=== PATIENT | male | born 1955 | race African-American/Black ===

== ENCOUNTER 2020-05-11 15:31 | Inpatient (IN) ==
[2020-05-11 16:17] LABS: Basophils % 0.5 % (0.0-0.8); Eosinophils % 0.7 % (0.00-10.9); Hematocrit 31.9 VOL% (42.0-52.0); Hemoglobin 9.8 GM/DL (14.0-18.0); Immature Granulocytes % 0.5 %; Immature Granulocytes Absolute 0.02 #; Lymphocytes # 0.5 10*3/uL (1.4-4.0); Lymphocytes % 12.4 % (21.2-54.2); Mean Corpuscular HGB Conc 30.7 GM/DL (32-36); Mean Corpuscular Volume 89.9 FL (87-102); Mean Platelet Volume 11.3 FL (9.6-12.0); Monocytes % 4.7 % (1.7-12.7); Neutrophils % 81.2 % (38.7-73.9); Platelet Count 149 T/CUMM (130-400); Red Blood Count 3.55 MC/CUMM (3.8-5.5); Red Cell Distribution Width 16.6 % (9.3-17.3); White Blood Count 4.3 T/CUMM (4-12)
[2020-05-11 16:44] LABS: Alanine Aminotransferase 28 U/L (16-61); Albumin 3.6 G/DL (3.4-5.0); Alkaline Phosphatase 162 U/L (45-117); Aspartate Amino Transferase 28 U/L (0-37); Bilirubin,Total < 0.39 MG/DL (0.2-1.0); Blood Urea Nitrogen 32 MG/DL (7-18); Calcium 8.9 MG/DL (8.5-10.1); Estimated Glom Filtration Rate 29 ML/MIN; Glucose 118 MG/DL (74-106); Osmolality,Calculated 295.7 MOS/KG (273-304); Total Protein 7.3 G/DL (6.4-8.3)
[2020-05-11 17:51] LABS: ABG Base Excess 0.4 MMOL/L (-2.5-2.5); ABG HCO3 24.7 MMOL/L (20-26); ABG Oxygen Saturation 93.1 % (95-100); ABG PCO2 55.1 MM HG (35-48); ABG PH 7.306 (7.35-7.45); ABG PO2 75.3 MM HG (80-95); ABG TCO2 25.5 MMOL/L (23-27)
[2020-05-11] MEDS ORDERED: GLUCAGON 1 MG VIAL IM PRN (18:01)
[2020-05-11] MEDS ORDERED: ACETAMINOPHEN 325 MG TABLET PO PRN (18:01)
[2020-05-11] MEDS ORDERED: DEXTROSE 50% 25 GM/50 ML VIAL IV PRN (18:01)
[2020-05-11] MEDS ORDERED: ONDANSETRON 4 MG/2 ML VIAL IV PRN (18:01)
[2020-05-11] MEDS ORDERED: LACTULOSE 20 GM/30 ML UDCUP PO PRN (18:01)
[2020-05-11] MEDS ORDERED: NITROGLYCERIN SL 0.4 MG TABLET SL PRN (18:05)
[2020-05-11] MEDS ORDERED: FUROSEMIDE 40 MG/4 ML VIAL IV ONE (18:06)
[2020-05-11] MEDS ORDERED: cefTRIAXone 1,000 MG in SODIUM CHLORIDE 0.9% 100 ML IV STA (18:07)
[2020-05-11] MEDS ORDERED: AZITHROMYCIN INJ 500 MG in SODIUM CHLORIDE 0.9% 250 ML IV STA (18:07)
[2020-05-11] MEDS ORDERED: methylPREDNISolone SOD SUC 40 MG/1 ML VIAL IV STA (18:07)
[2020-05-11] MEDS: ALBUTEROL/IPRATROPIUM 3 ML NEB RESP TX SCH ×2 (20:00→22:35)
[2020-05-11] MEDS: hydrALAZINE 25 MG TABLET PO SCH (21:23)
[2020-05-11] MEDS: LOSARTAN 50 MG TABLET PO SCH (21:23)
[2020-05-11] MEDS: carvediloL 25 MG TABLET PO SCH (21:23)
[2020-05-11] MEDS: APIXABAN 5 MG TABLET PO SCH (21:23)
[2020-05-11] MEDS: AMIODARONE 200 MG TABLET PO SCH (21:24)
[2020-05-11] MEDS: ENOXAPARIN 30 MG/0.3 ML SYRINGE SUBCUT SCH (21:24)
[2020-05-11] MEDS: cloNIDine 0.1 MG TABLET PO SCH (21:53)
[2020-05-11] MEDS: INSULIN LISPRO 100 UNIT/ML SUBCUT SCH (21:54)
[2020-05-12] MEDS: ALBUTEROL/IPRATROPIUM 3 ML NEB RESP TX SCH ×6 (03:30→23:25)
[2020-05-12 04:41] LABS: Basophils % 0.2 % (0.0-0.8); Immature Granulocytes % 0.4 %; Immature Granulocytes Absolute 0.02 #; Lymphocytes # 0.5 10*3/uL (1.4-4.0); Lymphocytes % 11.9 % (21.2-54.2); Mean Corpuscular Volume 88.4 FL (87-102); Monocytes % 2.9 % (1.7-12.7); Neutrophils % 84.6 % (38.7-73.9); Platelet Count 162 T/CUMM (130-400); Red Blood Count 3.28 MC/CUMM (3.8-5.5); Red Cell Distribution Width 16.7 % (9.3-17.3); White Blood Count 4.5 T/CUMM (4-12)
[2020-05-12 05:06] LABS: Albumin 3.2 G/DL (3.4-5.0); Bilirubin,Total 0.6 MG/DL (0.2-1.0); Calcium 8.2 MG/DL (8.5-10.1); Osmolality,Calculated 286.7 MOS/KG (273-304); Total Protein 7.5 G/DL (6.4-8.3)
[2020-05-12] MEDS: cloNIDine 0.1 MG TABLET PO SCH ×3 (06:12→22:09)
[2020-05-12] MEDS: DILTIAZEM CD 180 MG CAPSULE PO SCH (09:30)
[2020-05-12] MEDS: INSULIN LISPRO 100 UNIT/ML SUBCUT SCH ×4 (09:30→22:10)
[2020-05-12] MEDS: hydrALAZINE 25 MG TABLET PO SCH ×2 (09:31→22:09)
[2020-05-12] MEDS: PANTOPRAZOLE 40 MG TABLET PO SCH (09:31)
[2020-05-12] MEDS: LOSARTAN 50 MG TABLET PO SCH ×2 (09:31→22:09)
[2020-05-12] MEDS: AMIODARONE 200 MG TABLET PO SCH ×2 (09:31→22:09)
[2020-05-12] MEDS: APIXABAN 5 MG TABLET PO SCH ×2 (09:31→22:09)
[2020-05-12] MEDS: carvediloL 25 MG TABLET PO SCH ×2 (09:31→22:09)
[2020-05-12] MEDS: ROSUVASTATIN 10 MG TABLET PO SCH (09:32)
[2020-05-12] MEDS: FUROSEMIDE 40 MG/4 ML VIAL IV SCH (09:32)
[2020-05-12] MEDS: methylPREDNISolone SOD SUC 40 MG/1 ML VIAL IV SCH ×2 (09:32→22:08)
[2020-05-12] MEDS: AZITHROMYCIN INJ 500 MG in SODIUM CHLORIDE 0.9% 250 ML IV SCH (09:33)
[2020-05-12] MEDS: cefTRIAXone 1,000 MG in SYRINGE 1 EACH IV SCH (09:33)
[2020-05-12] MEDS: allopurinoL 100 MG TABLET PO SCH (09:33)
[2020-05-12] MEDS: ENOXAPARIN 30 MG/0.3 ML SYRINGE SUBCUT SCH (22:09)
[2020-05-13] MEDS: ALBUTEROL/IPRATROPIUM 3 ML NEB RESP TX SCH ×5 (03:10→20:14)
[2020-05-13] MEDS: cloNIDine 0.1 MG TABLET PO SCH ×3 (05:50→21:44)
[2020-05-13 08:58] LABS: Hematocrit 30.9 VOL% (42.0-52.0); Hemoglobin 9.5 GM/DL (14.0-18.0); Immature Granulocytes % 0.6 %; Immature Granulocytes Absolute 0.06 #; Lymphocytes # 0.7 10*3/uL (1.4-4.0); Lymphocytes % 6.5 % (21.2-54.2); Mean Corpuscular HGB Conc 30.7 GM/DL (32-36); Mean Corpuscular Volume 89.3 FL (87-102); Mean Platelet Volume 11.9 FL (9.6-12.0); Monocytes % 2.5 % (1.7-12.7); Neutrophils % 90.4 % (38.7-73.9); Platelet Count 208 T/CUMM (130-400); Red Blood Count 3.46 MC/CUMM (3.8-5.5); Red Cell Distribution Width 16.5 % (9.3-17.3); White Blood Count 10.3 T/CUMM (4-12)
[2020-05-13 09:12] LABS: Calcium 8.2 MG/DL (8.5-10.1)
[2020-05-13] MEDS: APIXABAN 5 MG TABLET PO SCH ×2 (09:30→21:37)
[2020-05-13] MEDS: carvediloL 25 MG TABLET PO SCH ×2 (09:30→21:37)
[2020-05-13] MEDS: DILTIAZEM CD 180 MG CAPSULE PO SCH (09:30)
[2020-05-13] MEDS: ROSUVASTATIN 10 MG TABLET PO SCH (09:31)
[2020-05-13] MEDS: hydrALAZINE 25 MG TABLET PO SCH ×2 (09:31→21:37)
[2020-05-13] MEDS: allopurinoL 100 MG TABLET PO SCH (09:31)
[2020-05-13] MEDS: PANTOPRAZOLE 40 MG TABLET PO SCH (09:31)
[2020-05-13] MEDS: AMIODARONE 200 MG TABLET PO SCH ×2 (09:31→21:37)
[2020-05-13] MEDS: LOSARTAN 50 MG TABLET PO SCH ×2 (09:31→21:37)
[2020-05-13] MEDS: INSULIN LISPRO 100 UNIT/ML SUBCUT SCH ×4 (09:32→21:36)
[2020-05-13] MEDS: methylPREDNISolone SOD SUC 40 MG/1 ML VIAL IV SCH ×2 (09:33→18:48)
[2020-05-13] MEDS: cefTRIAXone 1,000 MG in SYRINGE 1 EACH IV SCH (09:35)
[2020-05-13] MEDS: FUROSEMIDE 40 MG/4 ML VIAL IV SCH (09:36)
[2020-05-13] MEDS: AZITHROMYCIN INJ 500 MG in SODIUM CHLORIDE 0.9% 250 ML IV SCH (09:45)
[2020-05-13 14:48] LABS: ABG Base Excess -0.8 MMOL/L (-2.5-2.5); ABG HCO3 23.6 MMOL/L (20-26); ABG Oxygen Saturation 90.8 % (95-100); ABG PCO2 51.3 MM HG (35-48); ABG PH 7.311 (7.35-7.45)
[2020-05-13] MEDS: SALMETEROL 50 MCG/PUFF DISKUS 28 DOSE INH SCH ×2 (15:52→21:38)
[2020-05-13] MEDS: ENOXAPARIN 30 MG/0.3 ML SYRINGE SUBCUT SCH (21:36)
[2020-05-14] MEDS: ALBUTEROL/IPRATROPIUM 3 ML NEB RESP TX SCH ×6 (00:41→19:58)
[2020-05-14] MEDS: methylPREDNISolone SOD SUC 40 MG/1 ML VIAL IV SCH ×3 (01:39→17:39)
[2020-05-14 04:06] LABS: Hemoglobin 9.3 GM/DL (14.0-18.0); Immature Granulocytes % 0.5 %; Immature Granulocytes Absolute 0.05 #; Lymphocytes # 0.6 10*3/uL (1.4-4.0); Lymphocytes % 6.6 % (21.2-54.2); Mean Platelet Volume 11.9 FL (9.6-12.0); Monocytes % 2.6 % (1.7-12.7); Neutrophils % 90.3 % (38.7-73.9); Platelet Count 213 T/CUMM (130-400); Red Blood Count 3.37 MC/CUMM (3.8-5.5); Red Cell Distribution Width 16.2 % (9.3-17.3); White Blood Count 9.7 T/CUMM (4-12)
[2020-05-14 04:38] LABS: Calcium 8.4 MG/DL (8.5-10.1)
[2020-05-14] MEDS: cloNIDine 0.1 MG TABLET PO SCH ×3 (05:48→22:35)
[2020-05-14] MEDS: AZITHROMYCIN INJ 500 MG in SODIUM CHLORIDE 0.9% 250 ML IV SCH (09:15)
[2020-05-14] MEDS: LOSARTAN 50 MG TABLET PO SCH (09:17)
[2020-05-14] MEDS: PANTOPRAZOLE 40 MG TABLET PO SCH (09:17)
[2020-05-14] MEDS: ROSUVASTATIN 10 MG TABLET PO SCH (09:17)
[2020-05-14] MEDS: DILTIAZEM CD 180 MG CAPSULE PO SCH (09:17)
[2020-05-14] MEDS: carvediloL 25 MG TABLET PO SCH ×2 (09:17→22:42)
[2020-05-14] MEDS: AMIODARONE 200 MG TABLET PO SCH ×2 (09:18→22:37)
[2020-05-14] MEDS: APIXABAN 5 MG TABLET PO SCH ×2 (09:18→22:36)
[2020-05-14] MEDS: allopurinoL 100 MG TABLET PO SCH (09:18)
[2020-05-14] MEDS: hydrALAZINE 25 MG TABLET PO SCH ×2 (09:18→22:36)
[2020-05-14] MEDS: INSULIN LISPRO 100 UNIT/ML SUBCUT SCH ×4 (09:19→22:45)
[2020-05-14] MEDS: cefTRIAXone 1,000 MG in SYRINGE 1 EACH IV SCH (09:22)
[2020-05-14] MEDS: SALMETEROL 50 MCG/PUFF DISKUS 28 DOSE INH SCH ×2 (09:26→22:45)
[2020-05-14] MEDS: THEOPHYLLINE ER (24 HR) 400 MG CAPSULE PO SCH (09:33)
[2020-05-15] MEDS: ALBUTEROL/IPRATROPIUM 3 ML NEB RESP TX SCH ×6 (00:15→19:50)
[2020-05-15] MEDS: methylPREDNISolone SOD SUC 40 MG/1 ML VIAL IV SCH ×3 (02:42→17:58)
[2020-05-15 04:15] LABS: Basophils % 0.1 % (0.0-0.8); Hematocrit 30.2 VOL% (42.0-52.0); Hemoglobin 9.6 GM/DL (14.0-18.0); Immature Granulocytes % 0.9 %; Immature Granulocytes Absolute 0.08 #; Lymphocytes # 0.6 10*3/uL (1.4-4.0); Lymphocytes % 6.8 % (21.2-54.2); Mean Corpuscular HGB Conc 31.8 GM/DL (32-36); Mean Corpuscular Volume 87.3 FL (87-102); Mean Platelet Volume 11.8 FL (9.6-12.0); Monocytes % 3.4 % (1.7-12.7); Neutrophils % 88.8 % (38.7-73.9); Platelet Count 205 T/CUMM (130-400); Red Blood Count 3.46 MC/CUMM (3.8-5.5); Red Cell Distribution Width 16.5 % (9.3-17.3); White Blood Count 8.7 T/CUMM (4-12)
[2020-05-15 04:29] LABS: Calcium 8.5 MG/DL (8.5-10.1); Osmolality,Calculated 300.1 MOS/KG (273-304)
[2020-05-15] MEDS: cloNIDine 0.1 MG TABLET PO SCH ×3 (05:30→21:58)
[2020-05-15] MEDS ORDERED: SODIUM CHLORIDE 0.9% 100 ML IV ONE ×2 (08:21→10:38)
[2020-05-15] MEDS ORDERED: SODIUM CHLORIDE 0.9% 250 ML IV ONE ×2 (08:22)
[2020-05-15] MEDS: AZITHROMYCIN INJ 500 MG in SODIUM CHLORIDE 0.9% 250 ML IV SCH (08:42)
[2020-05-15] MEDS ORDERED: methylPREDNISolone SOD SUC 40 MG/1 ML VIAL IV ONE (08:50)
[2020-05-15] MEDS: DILTIAZEM CD 180 MG CAPSULE PO SCH (09:24)
[2020-05-15] MEDS: ROSUVASTATIN 10 MG TABLET PO SCH (09:24)
[2020-05-15] MEDS: PANTOPRAZOLE 40 MG TABLET PO SCH (09:24)
[2020-05-15] MEDS: carvediloL 25 MG TABLET PO SCH ×2 (09:24→20:43)
[2020-05-15] MEDS: allopurinoL 100 MG TABLET PO SCH (09:25)
[2020-05-15] MEDS: APIXABAN 5 MG TABLET PO SCH ×2 (09:25→20:43)
[2020-05-15] MEDS: hydrALAZINE 25 MG TABLET PO SCH ×2 (09:25→20:43)
[2020-05-15] MEDS: SALMETEROL 50 MCG/PUFF DISKUS 28 DOSE INH SCH ×2 (09:25→22:01)
[2020-05-15] MEDS: AMIODARONE 200 MG TABLET PO SCH ×2 (09:25→20:44)
[2020-05-15] MEDS: THEOPHYLLINE ER (24 HR) 400 MG CAPSULE PO SCH (09:37)
[2020-05-15] MEDS: INSULIN LISPRO 100 UNIT/ML SUBCUT SCH ×4 (09:37→20:44)
[2020-05-15] MEDS: cefTRIAXone 1,000 MG in SYRINGE 1 EACH IV SCH (11:26)
[2020-05-16] MEDS: ALBUTEROL/IPRATROPIUM 3 ML NEB RESP TX SCH ×7 (00:01→23:08)
[2020-05-16] MEDS: methylPREDNISolone SOD SUC 40 MG/1 ML VIAL IV SCH ×3 (01:11→17:40)
[2020-05-16 04:46] LABS: Calcium 8.7 MG/DL (8.5-10.1); Osmolality,Calculated 300.2 MOS/KG (273-304)
[2020-05-16 05:05] LABS: Basophils % 0.1 % (0.0-0.8); Hematocrit 36.3 VOL% (42.0-52.0); Hemoglobin 10.9 GM/DL (14.0-18.0); Immature Granulocytes % 1.4 %; Immature Granulocytes Absolute 0.12 #; Lymphocytes # 0.5 10*3/uL (1.4-4.0); Lymphocytes % 5.9 % (21.2-54.2); Mean Corpuscular Volume 91.4 FL (87-102); Mean Platelet Volume 11.6 FL (9.6-12.0); Monocytes % 3.4 % (1.7-12.7); Neutrophils % 89.2 % (38.7-73.9); Platelet Count 168 T/CUMM (130-400); Red Blood Count 3.97 MC/CUMM (3.8-5.5); Red Cell Distribution Width 16.7 % (9.3-17.3); White Blood Count 8.7 T/CUMM (4-12)
[2020-05-16] MEDS: cloNIDine 0.1 MG TABLET PO SCH ×4 (05:51→23:14)
[2020-05-16] MEDS: INSULIN LISPRO 100 UNIT/ML SUBCUT SCH ×4 (09:48→21:48)
[2020-05-16] MEDS: cefTRIAXone 1,000 MG in SYRINGE 1 EACH IV SCH (09:49)
[2020-05-16] MEDS: DILTIAZEM CD 180 MG CAPSULE PO SCH (09:52)
[2020-05-16] MEDS: allopurinoL 100 MG TABLET PO SCH (09:54)
[2020-05-16] MEDS: ROSUVASTATIN 10 MG TABLET PO SCH (09:54)
[2020-05-16] MEDS: PANTOPRAZOLE 40 MG TABLET PO SCH (09:55)
[2020-05-16] MEDS: hydrALAZINE 25 MG TABLET PO SCH ×2 (09:55→21:48)
[2020-05-16] MEDS: THEOPHYLLINE ER (24 HR) 400 MG CAPSULE PO SCH (09:55)
[2020-05-16] MEDS: carvediloL 25 MG TABLET PO SCH ×2 (09:55→21:48)
[2020-05-16] MEDS: APIXABAN 5 MG TABLET PO SCH ×2 (09:55→21:48)
[2020-05-16] MEDS: AMIODARONE 200 MG TABLET PO SCH ×2 (09:56→21:48)
[2020-05-16] MEDS: SALMETEROL 50 MCG/PUFF DISKUS 28 DOSE INH SCH ×2 (10:01→21:50)
[2020-05-16] MEDS: AZITHROMYCIN INJ 500 MG in SODIUM CHLORIDE 0.9% 250 ML IV SCH ×2 (15:58→17:50)
[2020-05-16] MEDS ORDERED: FUROSEMIDE 40 MG/4 ML VIAL IV ONE ×2 (16:30→16:36)
[2020-05-16] MEDS ORDERED: FUROSEMIDE 40 MG/4 ML VIAL ONE (16:31)
[2020-05-16] MEDS ORDERED: methylPREDNISolone SOD SUC 40 MG/1 ML VIAL IV ONE (16:34)
[2020-05-16 16:41] LABS: ABG HCO3 23.3 MMOL/L (20-26); ABG Oxygen Saturation 84.2 % (95-100); ABG PH 7.243 (7.35-7.45); ABG TCO2 25.6 MMOL/L (23-27)
[2020-05-16] MEDS ORDERED: SODIUM BICARBONATE 650 MG TABLET PO SCH (17:16)
[2020-05-16 18:14] LABS: Hematocrit 33.1 VOL% (42.0-52.0); Hemoglobin 10.4 GM/DL (14.0-18.0); Immature Granulocytes % 1.2 %; Immature Granulocytes Absolute 0.11 #; Lymphocytes # 0.5 10*3/uL (1.4-4.0); Lymphocytes % 5.2 % (21.2-54.2); Mean Corpuscular HGB Conc 31.4 GM/DL (32-36); Mean Corpuscular Volume 89.2 FL (87-102); Mean Platelet Volume 11.2 FL (9.6-12.0); Monocytes % 4.4 % (1.7-12.7); Neutrophils % 89.2 % (38.7-73.9); Platelet Count 243 T/CUMM (130-400); Red Blood Count 3.71 MC/CUMM (3.8-5.5); Red Cell Distribution Width 16.4 % (9.3-17.3); White Blood Count 9.1 T/CUMM (4-12)
[2020-05-16 18:43] LABS: Apearance,Urine CLEAR (Clear); Bacteria,Urine Occasional /HPF (Few); Bilirubin,Urine Negative (Negative); Blood, Urine Negative (Negative); Glucose,Urine (UA) Negative (Negative); Hyaline Casts,Urine 1 /LPF (0-3); Ketones,Urine Negative (Negative); Mucus,Urine Occasional /LPF (Occasional); Nitrite,Urine Negative (Negative); Protein,Urine 30 MG/DL; RBC,Urine 2 /HPF (0-4); Urine Color Straw (Yellow); Urine Specific Gravity 1.009 (1.001-1.035); Urine Urobilinogen < 2.0 EU/DL (0.2-1.0)
[2020-05-17] MEDS: methylPREDNISolone SOD SUC 40 MG/1 ML VIAL IV SCH ×3 (00:58→16:59)
[2020-05-17] MEDS: hydrALAZINE 20 MG/1 ML VIAL IV PRN (00:58)
[2020-05-17] MEDS: ALBUTEROL/IPRATROPIUM 3 ML NEB RESP TX SCH ×6 (02:52→23:36)
[2020-05-17 03:59] LABS: Calcium 8.9 MG/DL (8.5-10.1); Osmolality,Calculated 312.5 MOS/KG (273-304)
[2020-05-17 04:59] LABS: ABG Base Excess 2.9 MMOL/L (-2.5-2.5); ABG Oxygen Saturation 95.4 % (95-100); ABG PCO2 50.6 MM HG (35-48); ABG PH 7.367 (7.35-7.45); ABG PO2 77.8 MM HG (80-95); ABG TCO2 26.3 MMOL/L (23-27); Allen Test Positive; Pt O2 Delivery Device BIPAP
[2020-05-17] MEDS: cefTRIAXone 1,000 MG in SYRINGE 1 EACH IV SCH (08:41)
[2020-05-17] MEDS: FUROSEMIDE 40 MG/4 ML VIAL IV SCH ×2 (08:41→16:59)
[2020-05-17] MEDS: INSULIN LISPRO 100 UNIT/ML SUBCUT SCH ×4 (08:42→21:22)
[2020-05-17] MEDS: carvediloL 25 MG TABLET PO SCH ×2 (08:43→21:15)
[2020-05-17] MEDS: APIXABAN 5 MG TABLET PO SCH ×2 (08:43→21:17)
[2020-05-17] MEDS: DILTIAZEM CD 180 MG CAPSULE PO SCH (08:43)
[2020-05-17] MEDS: cloNIDine 0.1 MG TABLET PO SCH ×3 (08:43→21:16)
[2020-05-17] MEDS: ROSUVASTATIN 10 MG TABLET PO SCH (08:43)
[2020-05-17] MEDS: PANTOPRAZOLE 40 MG TABLET PO SCH (08:43)
[2020-05-17] MEDS: hydrALAZINE 25 MG TABLET PO SCH ×2 (08:43→21:16)
[2020-05-17] MEDS: AMIODARONE 200 MG TABLET PO SCH ×2 (08:44→21:17)
[2020-05-17] MEDS: AZITHROMYCIN INJ 500 MG in SODIUM CHLORIDE 0.9% 250 ML IV SCH (08:44)
[2020-05-17] MEDS: allopurinoL 100 MG TABLET PO SCH (08:44)
[2020-05-17] MEDS: SALMETEROL 50 MCG/PUFF DISKUS 28 DOSE INH SCH ×2 (08:48→21:00)
[2020-05-17] MEDS: THEOPHYLLINE ER (24 HR) 400 MG CAPSULE PO SCH (08:48)
[2020-05-17] MEDS ORDERED: ALBUTEROL 2.5 MG/3 ML NEB RESP TX ONE (11:09)
[2020-05-17] MEDS: BUDESONIDE 0.5 MG/2 ML NEB RESP TX SCH ×2 (11:16→19:05)
[2020-05-18] MEDS: hydrALAZINE 20 MG/1 ML VIAL IV PRN (01:11)
[2020-05-18] MEDS: methylPREDNISolone SOD SUC 40 MG/1 ML VIAL IV SCH ×3 (01:11→16:39)
[2020-05-18] MEDS: ALBUTEROL/IPRATROPIUM 3 ML NEB RESP TX SCH ×6 (03:09→23:14)
[2020-05-18 04:07] LABS: Basophils % 0.1 % (0.0-0.8); Hematocrit 34.3 VOL% (42.0-52.0); Immature Granulocytes % 1.4 %; Immature Granulocytes Absolute 0.16 #; Lymphocytes # 0.4 10*3/uL (1.4-4.0); Lymphocytes % 3.4 % (21.2-54.2); Mean Corpuscular HGB Conc 32.1 GM/DL (32-36); Monocytes % 3.5 % (1.7-12.7); NRBC # 0.04 10*3/uL; Neutrophils % 91.6 % (38.7-73.9); Platelet Count 223 T/CUMM (130-400); Red Blood Count 3.99 MC/CUMM (3.8-5.5); White Blood Count 11.7 T/CUMM (4-12)
[2020-05-18 04:35] LABS: Calcium 9.4 MG/DL (8.5-10.1); Osmolality,Calculated 309.7 MOS/KG (273-304)
[2020-05-18 04:50] LABS: Lymphocytes 5 % (20-55); Nucleated Red Blood Cells 1 (0-5); Platelet Estimate Normal; Segmented Neutrophils 93 % (50-85); Total Cells Counted 100
[2020-05-18 04:51] LABS: Hypochromasia Slight; Microcytosis 1+; Polychromasia Slight; Target Cells Few
[2020-05-18 04:53] LABS: Anisocytosis Slight
[2020-05-18] MEDS: cloNIDine 0.1 MG TABLET PO SCH ×3 (05:02→21:33)
[2020-05-18] MEDS: BUDESONIDE 0.5 MG/2 ML NEB RESP TX SCH ×2 (07:37→19:54)
[2020-05-18] MEDS: INSULIN LISPRO 100 UNIT/ML SUBCUT SCH ×4 (08:59→21:42)
[2020-05-18] MEDS: DILTIAZEM CD 180 MG CAPSULE PO SCH (09:00)
[2020-05-18] MEDS: carvediloL 25 MG TABLET PO SCH ×2 (09:01→21:33)
[2020-05-18] MEDS: PANTOPRAZOLE 40 MG TABLET PO SCH (09:01)
[2020-05-18] MEDS: allopurinoL 100 MG TABLET PO SCH (09:01)
[2020-05-18] MEDS: AMIODARONE 200 MG TABLET PO SCH ×2 (09:01→21:33)
[2020-05-18] MEDS: hydrALAZINE 25 MG TABLET PO SCH ×2 (09:02→21:33)
[2020-05-18] MEDS: APIXABAN 5 MG TABLET PO SCH ×2 (09:02→21:34)
[2020-05-18] MEDS: THEOPHYLLINE ER (24 HR) 400 MG CAPSULE PO SCH (09:02)
[2020-05-18] MEDS: ROSUVASTATIN 10 MG TABLET PO SCH (09:02)
[2020-05-18] MEDS: FUROSEMIDE 40 MG/4 ML VIAL IV SCH ×2 (09:05→16:39)
[2020-05-18] MEDS: cefTRIAXone 1,000 MG in SYRINGE 1 EACH IV SCH (09:09)
[2020-05-18] MEDS: AZITHROMYCIN INJ 500 MG in SODIUM CHLORIDE 0.9% 250 ML IV SCH (09:12)
[2020-05-18] MEDS: SALMETEROL 50 MCG/PUFF DISKUS 28 DOSE INH SCH ×2 (11:33→21:37)
[2020-05-19] MEDS: methylPREDNISolone SOD SUC 40 MG/1 ML VIAL IV SCH ×4 (02:13→16:38)
[2020-05-19] MEDS: ALBUTEROL/IPRATROPIUM 3 ML NEB RESP TX SCH ×6 (02:57→23:23)
[2020-05-19] MEDS: cloNIDine 0.1 MG TABLET PO SCH ×3 (05:34→21:16)
[2020-05-19 05:52] LABS: Basophils % 0.1 % (0.0-0.8); Hematocrit 38.3 VOL% (42.0-52.0); Immature Granulocytes % 1.4 %; Immature Granulocytes Absolute 0.12 #; Lymphocytes # 0.3 10*3/uL (1.4-4.0); Lymphocytes % 3.3 % (21.2-54.2); Mean Corpuscular HGB Conc 31.3 GM/DL (32-36); Mean Platelet Volume 11.6 FL (9.6-12.0); Monocytes % 3.3 % (1.7-12.7); NRBC # 0.04 10*3/uL; Neutrophils % 91.9 % (38.7-73.9); Platelet Count 163 T/CUMM (130-400); Red Blood Count 4.35 MC/CUMM (3.8-5.5); Red Cell Distribution Width 16.5 % (9.3-17.3); White Blood Count 8.8 T/CUMM (4-12)
[2020-05-19 06:37] LABS: Anisocytosis 1+; Hypochromasia 1+; Lymphocytes 4 % (20-55); Microcytosis 1+; Platelet Estimate Adequate; Segmented Neutrophils 93 % (50-85); Total Cells Counted 100
[2020-05-19 06:39] LABS: Ovalocytes Slight
[2020-05-19 06:39] LABS: Calcium 9.6 MG/DL (8.5-10.1)
[2020-05-19] MEDS: BUDESONIDE 0.5 MG/2 ML NEB RESP TX SCH ×2 (08:00→19:40)
[2020-05-19] MEDS: DILTIAZEM CD 180 MG CAPSULE PO SCH (08:38)
[2020-05-19] MEDS: PANTOPRAZOLE 40 MG TABLET PO SCH (08:38)
[2020-05-19] MEDS: ROSUVASTATIN 10 MG TABLET PO SCH (08:38)
[2020-05-19] MEDS: allopurinoL 100 MG TABLET PO SCH (08:38)
[2020-05-19] MEDS: THEOPHYLLINE ER (24 HR) 400 MG CAPSULE PO SCH (08:38)
[2020-05-19] MEDS: hydrALAZINE 25 MG TABLET PO SCH ×2 (08:39→21:16)
[2020-05-19] MEDS: carvediloL 25 MG TABLET PO SCH ×2 (08:39→21:16)
[2020-05-19] MEDS: cefTRIAXone 1,000 MG in SYRINGE 1 EACH IV SCH (08:39)
[2020-05-19] MEDS: APIXABAN 5 MG TABLET PO SCH ×2 (08:39→21:16)
[2020-05-19] MEDS: INSULIN LISPRO 100 UNIT/ML SUBCUT SCH ×4 (08:40→21:15)
[2020-05-19] MEDS: FUROSEMIDE 40 MG/4 ML VIAL IV SCH ×2 (08:40→16:37)
[2020-05-19] MEDS: AZITHROMYCIN INJ 500 MG in SODIUM CHLORIDE 0.9% 250 ML IV SCH (08:41)
[2020-05-19] MEDS: SALMETEROL 50 MCG/PUFF DISKUS 28 DOSE INH SCH (08:41)
[2020-05-19] MEDS: AMIODARONE 200 MG TABLET PO SCH ×2 (08:53→21:16)
[2020-05-20] MEDS: methylPREDNISolone SOD SUC 40 MG/1 ML VIAL IV SCH ×2 (00:29→08:18)
[2020-05-20] MEDS: ALBUTEROL/IPRATROPIUM 3 ML NEB RESP TX SCH ×3 (03:30→11:10)
[2020-05-20 06:05] LABS: Basophils % 0.1 % (0.0-0.8); Hematocrit 31.9 VOL% (42.0-52.0); Hemoglobin 10.4 GM/DL (14.0-18.0); Immature Granulocytes % 2.3 %; Immature Granulocytes Absolute 0.26 #; Lymphocytes # 0.4 10*3/uL (1.4-4.0); Lymphocytes % 3.2 % (21.2-54.2); Mean Corpuscular HGB Conc 32.6 GM/DL (32-36); Mean Corpuscular Volume 85.3 FL (87-102); Mean Platelet Volume 11.9 FL (9.6-12.0); NRBC # 0.06 10*3/uL; Neutrophils % 90.4 % (38.7-73.9); Platelet Count 212 T/CUMM (130-400); Red Blood Count 3.74 MC/CUMM (3.8-5.5); White Blood Count 11.1 T/CUMM (4-12)
[2020-05-20] MEDS: cloNIDine 0.1 MG TABLET PO SCH (06:30)
[2020-05-20 06:34] LABS: Calcium 9.6 MG/DL (8.5-10.1); Osmolality,Calculated 311.1 MOS/KG (273-304)
[2020-05-20 06:58] LABS: Lymphocytes 1 % (20-55); Platelet Estimate Adequate; Segmented Neutrophils 94 % (50-85); Total Cells Counted 100
[2020-05-20 06:59] LABS: Hypochromasia 1+; Microcytosis 1+
[2020-05-20] MEDS: BUDESONIDE 0.5 MG/2 ML NEB RESP TX SCH (07:42)
[2020-05-20] MEDS: INSULIN LISPRO 100 UNIT/ML SUBCUT SCH ×2 (08:18→12:49)
[2020-05-20] MEDS: FUROSEMIDE 40 MG/4 ML VIAL IV SCH (08:18)
[2020-05-20] MEDS: THEOPHYLLINE ER (24 HR) 400 MG CAPSULE PO SCH (08:18)
[2020-05-20] MEDS: allopurinoL 100 MG TABLET PO SCH (08:19)
[2020-05-20] MEDS: DILTIAZEM CD 180 MG CAPSULE PO SCH (08:19)
[2020-05-20] MEDS: carvediloL 25 MG TABLET PO SCH (08:20)
[2020-05-20] MEDS: ROSUVASTATIN 10 MG TABLET PO SCH (08:21)
[2020-05-20] MEDS: AMIODARONE 200 MG TABLET PO SCH (08:21)
[2020-05-20] MEDS: APIXABAN 5 MG TABLET PO SCH (08:22)
[2020-05-20] MEDS: hydrALAZINE 25 MG TABLET PO SCH (09:19)
[2020-05-20 12:22] VITALS: BP 137/93
[2020-05-20] MEDS ORDERED: FUROSEMIDE 80 MG TABLET PO SCH (16:00)
== END 2020-05-20 15:41 | disposition home health service (06) | DRG 291 ==
LOC: N.ED 15:31 → SUATTDRO 18:01 → N.EDINP 18:01 → N.TELEN 20:41 → N.4E 05-15 15:29 → N.ICU 05-16 17:13 → N.5E 05-18 16:10
PROVIDERS: ADMIT Internal Medicine; ATTEND Hospitalist